=== PATIENT | male | born 1945 | race Caucasian/White ===

== ENCOUNTER 2022-12-04 09:53 | Emergency (ER) | payer MEDICARE, BC ==
[2022-12-04] MEDS ORDERED: Lactated Ringers 1,000 ML IV SCH (10:30)
[2022-12-04] MEDS ORDERED: Acetaminophen 325 MG Tab PO ONE (10:38)
[2022-12-04 10:39] LABS: BASOPHILS ABSOLUTE AUTO 0.03 K/uL (0.00-0.10); BASOPHILS PERCENT AUTO 0.2 % (0.1-1.3); EOSINOPHILS ABSOLUTE AUTO 0.03 K/uL (0.00-0.40); EOSINOPHILS PERCENT AUTO 0.2 % (0.0-5.4); HEMATOCRIT 37.7 % (38.4-49.7); IMMATURE GRAN ABSOLUTE AUTO 0.09 K/uL (0.00-0.23); IMMATURE GRAN PERCENT AUTO 0.6 % (0.0-0.7); LYMPHOCYTES ABSOLUTE AUTO 0.61 K/uL (0.8-3.3); LYMPHOCYTES PERCENT AUTO 4.1 % (11.4-47.7); MEAN CORPUSCULAR HEMOGLOBIN 29.5 pg (31.6-35.5); MEAN CORPUSCULAR HGB CONC 34.5 g/dL (31.6-35.5); MEAN CORPUSCULAR VOLUME 85.5 fL (81.4-99.0); MONOCYTES ABSOLUTE AUTO 0.54 K/uL (0.20-0.90); MONOCYTES PERCENT AUTO 3.6 % (3.3-12.6); NEUTROPHILS ABSOLUTE AUTO 13.76 K/uL (1.0-7.6); NEUTROPHILS PERCENT AUTO 91.3 % (40.0-78.1); PLATELET COUNT,PLT 184 K/uL (130-375); RED BLOOD CELL COUNT 4.41 M/uL (4.14-5.76); WHITE BLOOD CELL COUNT,WBC 15.1 K/uL (3.2-11.0)
[2022-12-04 10:48] LABS: PROTHROMBIN TIME 37.7 sec (9.2-10.6)
[2022-12-04 10:50] LABS: INR 4.1
[2022-12-04 10:57] LABS: A/G RATIO 0.9 (1.2-2.2); ALANINE AMINOTRANSFERASE,ALT 46 U/L (12-78); ALBUMIN 3.2 g/dL (3.4-5.0); ALKALINE PHOSPHATASE 111 U/L (46-116); ASPARTATE AMNIOTRANSFERASE,AST 32 U/L (15-37); BILIRUBIN TOTAL 1.8 mg/dL (0.2-1.0); BLOOD UREA NITROGEN,BUN 16 mg/dL (7-18); C-REACTIVE PROTEIN 4.85 mg/dL (0.0-0.3); CALCIUM 8.3 mg/dL (8.5-10.1); CARBON DIOXIDE,CO2 23 mmol/L (21-32); CHLORIDE,CL 100 mmol/L (100-108); EST CRCL DRUG DOSING (CG) 63.88 mL/min; ESTIMATED GFR 78 mL/min (>60); GLUCOSE RANDOM 109 mg/dL (74-106); PROTEIN TOTAL,TP 6.7 g/dL (6.4-8.2); SODIUM,NA 132 mmol/L (140-148)
[2022-12-04 10:59] LABS: LACTIC ACID 1.1 mmol/L (0.4-2.0)
[2022-12-04] MEDS ORDERED: cefTRIAXone 2 GM in Sodium Chloride 0.9% 100 ML IV SCH (11:00)
[2022-12-04] MEDS ORDERED: Losartan 50 MG Tab PO SCH (12:45)
[2022-12-04] MEDS ORDERED: amLODIPine 5 MG Tab PO SCH (12:45)
[2022-12-04] MEDS ORDERED: Non-Formulary Medication 1 Each (Isosorbide Mononitrate [Imdur] 60 MG Tab.Er) PO SCH (12:45)
[2022-12-04] MEDS ORDERED: Metoprolol Succinate 25 MG Tab.ER PO SCH (12:45)
[2022-12-04] MEDS ORDERED: Non-Formulary Medication 1 Each (Aspirin [Vazalore] 81 MG Capsule) PO SCH (12:45)
[2022-12-04 13:01] LABS: APPEARANCE,URINE SLIGHTLY CLOUDY (CLEAR); BILIRUBIN,URINE NEGATIVE (NEGATIVE); COLOR,URINE YELLOW (YELLOW); GLUCOSE,URINE NEGATIVE (NEGATIVE); KETONES,URINE NEGATIVE (NEGATIVE); LEUKOCYTE ESTERASE,URINE MODERATE (NEGATIVE); NITRITE,URINE NEGATIVE (NEGATIVE); OCCULT BLOOD,URINE MODERATE (NEGATIVE); PH,URINE 5.5 (5.0-8.0); PROTEIN,URINE TRACE mg/dL (NEGATIVE); UROBILINOGEN,URINE 0.2 EU/dL (0.2-1.0)
[2022-12-04 13:09] LABS: AMORPHOUS SEDIMENT,URINE RARE; BACTERIA,URINE RARE; EPITHELIAL CELLS,URINE NOT SEEN; MUCUS,URINE NOT SEEN; WBC,URINE 50-75 (0-5)
[2022-12-04] MEDS ORDERED: Aspirin 81 MG Tab.EC PO SCH (14:00)
[2022-12-04] MEDS ORDERED: Isosorbide Mononitrate 30 MG Tab.ER PO SCH (14:00)
[2022-12-04] MEDS ORDERED: atorvaSTATin 20 MG Tab PO SCH (21:00)
== END 2022-12-04 16:11 ==
LOC: JP.ED 09:53
DX: N30.01 Acute cystitis with hematuria (principal); R77.8 Other specified abnormalities of plasma proteins; I25.10 Atherosclerotic heart disease of native coronary artery without angina pectoris; E78.00 Pure hypercholesterolemia, unspecified; I10 Essential (primary) hypertension; Z86.73 Personal history of transient ischemic attack (TIA), and cerebral infarction without residual deficits; Z79.82 Long term (current) use of aspirin; Z79.01 Long term (current) use of anticoagulants; Z79.899 Other long term (current) drug therapy
CPT/HCPCS: 36415; 71045; 80053; 81001; 82947; 83605; 84145; 84484; 85025; 85610; 86140; 87040; 87086; 93005; 96365; 99285; A9270; J0696; J3490; J7120

== ENCOUNTER 2024-12-22 13:11 | Emergency (ER) | payer MEDICARE, BC ==
[2024-12-22 14:43] LABS: BASOPHILS ABSOLUTE AUTO 0.03 K/uL (0.00-0.10); BASOPHILS PERCENT AUTO 0.4 % (0.1-1.3); EOSINOPHILS ABSOLUTE AUTO 0.03 K/uL (0.00-0.40); EOSINOPHILS PERCENT AUTO 0.4 % (0.0-5.4); IMMATURE GRAN ABSOLUTE AUTO 0.04 K/uL (0.00-0.23); IMMATURE GRAN PERCENT AUTO 0.5 % (0.0-0.7); LYMPHOCYTES ABSOLUTE AUTO 0.52 K/uL (0.8-3.3); LYMPHOCYTES PERCENT AUTO 6.4 % (11.4-47.7); MONOCYTES ABSOLUTE AUTO 0.58 K/uL (0.20-0.90); MONOCYTES PERCENT AUTO 7.1 % (3.3-12.6); NEUTROPHILS ABSOLUTE AUTO 6.95 K/uL (1.0-7.6); NEUTROPHILS PERCENT AUTO 85.2 % (40.0-78.1); PLATELET COUNT,PLT 156 K/uL (130-375); RED BLOOD CELL COUNT 3.84 M/uL (4.14-5.76); WHITE BLOOD CELL COUNT,WBC 8.2 K/uL (3.2-11.0)
[2024-12-22 14:51] LABS: A/G RATIO 1.1 (1.2-2.2); ALANINE AMINOTRANSFERASE,ALT 41 U/L (12-78); ASPARTATE AMNIOTRANSFERASE,AST 38 U/L (15-37); BILIRUBIN TOTAL 1.3 mg/dL (0.2-1.0); BLOOD UREA NITROGEN,BUN 15 mg/dL (7-18); CARBON DIOXIDE,CO2 30 mmol/L (21-32); CHLORIDE,CL 105 mmol/L (100-108); CREATININE 0.8 mg/dL (0.8-1.3); EST CRCL DRUG DOSING (CG) 77.31 mL/min; ESTIMATED GFR 90 mL/min (>60); GLUCOSE RANDOM 96 mg/dL (74-106); POTASSIUM,K 4.1 mmol/L (3.6-5.2); PROTEIN TOTAL,TP 6.3 g/dL (6.4-8.2); SODIUM,NA 139 mmol/L (140-148)
[2024-12-22 15:13] LABS: APPEARANCE,URINE CLEAR (CLEAR); GLUCOSE,URINE NEGATIVE (NEGATIVE); OCCULT BLOOD,URINE TRACE-INTACT (NEGATIVE)
[2024-12-22] MEDS: Iopamidol 755 Mg/ML 100 ML Bottle IV ONE (15:54)
[2024-12-22] MEDS: Sodium Chloride 0.9% 10 ML Syringe FLUSH ONE (15:54)
[2024-12-22 17:19] LABS: INR 3.0
== END 2024-12-22 17:30 | disposition home or self-care (01) ==
LOC: JP.ED 13:11
DX: I63.9 Cerebral infarction, unspecified (principal); R47.01 Aphasia; I25.10 Atherosclerotic heart disease of native coronary artery without angina pectoris; E78.00 Pure hypercholesterolemia, unspecified; I10 Essential (primary) hypertension; Z79.899 Other long term (current) drug therapy; Z79.01 Long term (current) use of anticoagulants
CPT/HCPCS: 36415; 70450; 70496; 70498; 80053; 81003; 82947; 85025; 85610; 86140; 93005; 99284; Q9967; 93010; 99285